=== PATIENT | male | born 1985 | race Caucasian/White ===

== ENCOUNTER 2025-07-02 15:53 | Emergency (ER) | payer SELFPAY ==
[2025-07-02 15:55] VITALS: BMI 28.8
--- NOTE | 2025-07-02 16:24 | EDNOTE_ITS ---
ED Male Genitalurinary RME/HPI General Chief complaint: Urogenital-Male Stated complaint: BURN TO PRIVATE AREA, LARVA TO EYES Time Seen by Provider: 07/02/25 16:17 Source: patient Arrival date/time: 07/02/25 15:53 Mode of arrival: ambulatory Limitations: no limitations RME / HPI RME / HPI Narrative: Patient is a 39-year-old male that is in the emergency department with concerns for redness and burning sensation along his scrotum and penis as well as feeling that there are insects in both of his eyes. Patient states that he bought a lotion for his genital area, that he applied and caused redness and swelling. Denies any fevers chills nausea vomiting difficulties with urination, penile discharge. Denies history of STIs. No difficulty with bowel movements. Patient states that he went fishing a few weeks ago and then napsylate eggs in his eyes. Now he has a foreign body sensation in both of his eyes. Denies blurry vision or difficulty seeing. Patient states this has happened to him before, he was referred to an lead data entry operator but never went Related Data Previous Rx's ?Medication ?Instructions ?Recorded erythromycin 5 mg/gram (0.5 %) eye 0.5 inch ophthalmic (eye) QID 7 07/02/25 ointment days #3.5 grams neomycin-bacitracn Zn-polymyx 3.5 1 applic topical BID 7 days #9.35 07/02/25 mg-400 unit-5,000 unit/gram top grams oint (Triple Antibiotic) Allergies Allergy/AdvReac Type Severity Reaction Status Date / Time No Known Allergies Allergy Verified 07/02/25 15:55 ED Exam General Limitations: Present no limitations Course Quality Measures none Orders Category Date Time Status Fluorescein Sodium [Bio-Polly] Med 07/02/25 16:22 Discontinued 1 mg BOTH EYES X1 ONE Ketorolac Inj [Toradol Inj] Med 07/02/25 16:52 Discontinued 15 mg IM X1 ONE TETRACAINE Op Susan 0.5% [Pontocaine Op Susan 0.5%] Med 07/02/25 16:22 Discontinued 1 drop BOTH EYES X1 ONE Urogenital - Male MDM Narrative MDM Narrative:: Patient is a 39-year-old male to the emerged from with concerns for scrotal and penile pain as well as foreign body sensation in both of his eyes. Vital signs and exam as listed. Concern for foreign bodies in both of the eyes, corneal abrasions, iritis. Also concern for contact dermatitis of the scrotum and penis. Will provide patient with medications for symptom relief here in the emergency department for his scrotal penile symptoms. Advised him to follow-up with his primary care doctor. Will also perform for screening fluorescein assessment of both eyes. Patient has a small corneal abrasion on the left eye at approximately 6 o'clock position, no foreign bodies appreciated. Provided patient with a prescription for erythromycin as well as prescription for contact dermatitis. On reevaluation patient hemodynamically stable no distress will discharge home close return precautions follow-up with primary care doctor Patient data External records reviewed:: None Clinical information provided by:: patient Social determinants that could affect healthcare access:: none Patient has the following chronic illnesses:: None How is presenting disease/condition affected by chronic disease/condition?: no chronic disease Evaluation data The following diagnostics were reviewed and interpreted by me:: other (specify) Lab and/or radiology exams considered but not ordered:: None Interpretation Summary: See MDM Medications / Prescriptions Medications or Prescriptions considered but not ordered:: None Medication administrations:: Medication Administration History Discontinued Medications Fluorescein Sodium (Fluorescein Sod 1 Mg Strp) 1 mg BOTH EYES X1 ONE Stop: 07/02/25 16:23 Last Admin: 07/02/25 16:47 Dose: 1 mg Documented By: Ketorolac Tromethamine (Ketorolac Inj 60 Mg/2 Ml Vial) 15 mg IM X1 ONE Stop: 07/02/25 16:53 Last Admin: 07/02/25 17:06 Dose: 15 mg Documented By: Tetracaine HCl (Tetracaine Pf Op Susan 0.5% 4 Ml Drpette) 1 drop BOTH EYES X1 ONE Stop: 07/02/25 16:23 Last Admin: 07/02/25 16:47 Dose: 1 drop Documented By: See above Consultations Consultation(s) initiated? (list below): No Diagnosis Urogenital Male Differential Diagnosis: other (See MDM) Most likely diagnosis given after review of the tests above:: Contact dermatitis, allergic reaction, foreign body, corneal abrasion Admission Indicated Admission indicated?: not indicated Admission Request Was there a request for admission?: No Disposition Plan Disposition Plan: Discharge Discharge Attestation Discharge Attestation: The patient and all family members were given an opportunity to ask questions and understood the discharge instructions. Discharge instructions specifically effects, indications for sooner follow up or return to the emergency department, and the expected course of current diagnosis. Patient condition: Stable Discharge Plan Plan Patient Disposition: HOME (Self Care) Patient condition on transfer: Stable Prescriptions/Referrals Prescriptions/Med Rec: New erythromycin 5 mg/gram (0.5 %) ointment 0.5 inch ophthalmic (eye) QID 7 Days Qty: 3.5 0RF Triple Antibiotic 3.5mg-400 unit- 5,000 unit/gram ointment 1 applic topical BID 7 Days Qty: 9.35 0RF Problem List Clinical Impression: Contact dermatitis, Abrasion, corneal Patient/Caregiver Discharge Instructions Education Materials: Corneal Injury, ED Contact Dermatitis Additional Instructions: Please follow up with your primary care provider this week. Please wear loose clothes, do not apply any other lotions beyond what is prescribed. Please follow up with an lead data entry operator this week. Return immediately if symptoms worsen or new symptoms of concern Print Language: Cameroonian Stand Alone Forms: Rima Award Info., Patient Portal Info Letter
[2025-07-02] MEDS: TETRACAINE PF OP SOL 0.5% 4 ML DRPETTE 1 DROP BOTH EYES (16:47)
[2025-07-02] MEDS: FLUORESCEIN SOD 1 MG STRP BOTH EYES (16:47)
[2025-07-02] MEDS: KETOROLAC INJ 60 MG/2 ML VIAL 15 MG IM (17:06)
== END 2025-07-02 17:30 | disposition home or self-care (01) ==
LOC: SERX 17:41
PROVIDERS: Emergency Provider Emergency Medicine
DX: L25.9 Unspecified contact dermatitis, unspecified cause (principal); S05.02XA Injury of conjunctiva and corneal abrasion without foreign body, left eye, initial encounter; X58.XXXA Exposure to other specified factors, initial encounter
CPT/HCPCS: 96372; 99282; J1885

== ENCOUNTER 2025-10-28 16:06 | Emergency (ER) | payer MEDICAID, SELFPAY ==
--- NOTE | 2025-10-31 06:37 | PD.EDADDENDU ---
Emergency Room Addendum Addendum Narrative: Pt eloped prior to being seen
== END 2025-10-28 17:17 | disposition left against medical advice (07) ==
LOC: SERX 18:36
PROVIDERS: Emergency Provider Family Medicine
DX: Z53.21 Procedure and treatment not carried out due to patient leaving prior to being seen by health care provider (principal)
CPT/HCPCS: 99281

== ENCOUNTER 2025-11-02 00:47 | Emergency (ER) | payer BC, SELFPAY ==
[2025-11-02 00:48] VITALS: BP 131/86; PULSE 86; RESP 17; TEMP 36.7; O2SAT 98
[2025-11-02 01:31] VITALS: BP 124/86; PULSE 77; RESP 16; TEMP 37; O2SAT 95; BMI 29.0
--- NOTE | 2025-11-02 01:57 | XR_ITS ---
Examination: CT brain head without contrast. 2-D sagittal coronal reconstructions Date and time of exam: November 02, 2025, 0353 hours INDICATIONS: Seizure activity today CTDI: vol (mGy): 54.4 DLP: (mGycm): 1075 Technique: Multiple CT axial sections of the brain have been obtained, 5 mm slice thickness. Contrast has not been administered. 2-D sagittal, coronal reconstructions have been obtained Low dose protocols were performed. One or more of the following dose reduction techniques were used; automated exposure control, adjustment of the mA and/or KV according to patient size, use of iterative reconstruction technique. Findings: No significant ventricular enlargement. Intra-axial or extra-axial hemorrhage density is not seen. No mass effect or midline shift Basal cisterns are not remarkable. Fourth ventricle is midline. Cranial vault intact. Impression: Negative for acute hemorrhage, mass effect or midline shift Consider brain MRI follow-up, pre and post contrast, seizure protocol
--- NOTE | 2025-11-02 02:02 | PD.EDALCOH ---
ED Alcohol RME/HPI General Chief Complaint: General Adult/Misc Complain Stated Complaint: POSSIBLE ALCOHOL WITHDRAWAL Time Seen by Provider: 11/02/25 01:51 Arrival date/time: 11/02/25 00:47 39M with history of alcohol use presents to ED with possible alcohol withdrawal (last drink 2 days ago) with anxiety/panic attacks and possible seizure, though patient was awake for it. Limitations: no limitations Related Data Previous Rx's ?Medication ?Instructions ?Recorded chlordiazepoxide HCl 5 mg capsule 5 mg PO BID PRN alcohol withdrawal 11/02/25 #14 caps Allergies Allergy/AdvReac Type Severity Reaction Status Date / Time No Known Allergies Allergy Verified 10/28/25 16:10 Review of Systems Review of Systems Systems Reviewed: All systems reviewed, normal except as documented Neurologic Neurologic: Reports as per HPI and Reports convulsions Psychiatric Psychiatric: Reports as per HPI, Reports anxiety and Reports panic attacks Past Medical History Social History SMOKING STATUS: Current every day smoker ED Exam General Limitations: Present no limitations General appearance: Present alert, in no apparent distress and anxious Head Head exam: Present atraumatic ENT ENT exam: Present normal exam, normal oropharynx and mucous membranes moist Neck Neck exam: Present normal inspection, full ROM and trachea midline Chest Chest inspection: Present normal inspection and symmetric chest wall rise Neurological Exam Neurological exam: Present alert, oriented X3 and other (tremors) Psychiatric Psychiatric exam: Present normal affect and anxious Skin Skin exam: Present warm, dry, intact and normal color Course Quality Measures none Orders Category Date Time Status CT head/brain wo con Stat Exams 11/02/25 01:57 Taken Alcohol, Blood Medical Stat Lab 11/02/25 02:06 Completed CBC Stat Lab 11/02/25 02:06 Completed CMP [Comprehensive Metabolic Panel] Stat Lab 11/02/25 02:06 Completed Drug Screen,Urine Stat Lab 11/02/25 02:04 Completed Lactate (Lactic Acid) Stat Lab 11/02/25 02:06 Completed Mag [Magnesium] Stat Lab 11/02/25 02:06 Completed Troponin I Stat Lab 11/02/25 02:06 Completed Urinalysis, C/S if Indicated Stat Lab 11/02/25 02:06 Completed Diazepam [Valium] Med 11/02/25 01:51 Discontinued 10 mg PO X1 ONE Thiamine [Vitamin B-1] Med 11/02/25 01:51 Discontinued 100 mg PO X1 ONE Vital Signs Vital signs: Vital Signs Temperature 98.0 F 11/02/25 00:48 Pulse Rate 86 11/02/25 00:48 Respiratory Rate 17 11/02/25 00:48 Blood Pressure 131/86 H 11/02/25 00:48 Pulse Oximetry (%) 98 11/02/25 00:48 Oxygen Delivery Method Room Air 11/02/25 00:48 O2 at 98% on RA and WNLs Discharge Plan Plan Patient Disposition: HOME (Self Care) Discharge Disposition comment: Stable Prescriptions/Referrals Prescriptions/Med Rec: New chlordiazepoxide HCl 5 mg capsule 5 mg PO BID PRN (Reason: alcohol withdrawal) Qty: 14 0RF Referrals: No Primary/Family,Physician [Primary Care Provider] - In 1 week Problem List Clinical Impression: Alcohol withdrawal Patient/Caregiver Discharge Instructions Education Materials: Alcohol Withdrawal: What to Expect Additional Instructions: Please follow-up with PCP within 24-48 hours and return immediately if symptoms worsen. Print Language: Greek Stand Alone Forms: Patient Portal Info Letter PA/PRANAY Supervising Physician PA/PRANAY Supervising Physician: Dr. Rust Alcohol MDM Narrative MDM Narrative: 39M with history of alcohol use presents to ED with possible alcohol withdrawal (last drink 2 days ago) with anxiety/panic attacks and possible seizure, though patient was awake for it. Physical exam reveals tremors. Normal pupil response and EOM. Speech and WOB normal. Patient is afebrile, alert, but anxious. No leukocytosis. CMP unremarkable. Mag normal. Lactate normal. Alcohol/tox screen neg. Trop normal. Upon reassessment, patient sleeping after Valium. CT telerad unremarkable. Meds and halfway house counselor given. Patient data [place] [facility] [place] Clinical information provided by:: patient Social determinants that could affect healthcare access:: alcohol use Patient has the following chronic illnesses:: alcohol use How is presenting disease/condition affected by chronic disease/condition?: exacerbated by Evaluation data The following diagnostics were reviewed and interpreted by me:: lab results and radiology exam(s) Lab and/or radiology exams considered but not ordered:: ordered Interpretation Summary: above Medications / Prescriptions Medications or Prescriptions considered but not ordered:: ordered Medication administrations:: Medication Administration History Discontinued Medications Diazepam (Diazepam 5 Mg Tablet) 10 mg PO X1 ONE Stop: 11/02/25 01:52 Last Admin: 12/24/25 02:22 Dose: 10 mg Documented By: ANICETO Thiamine HCl (Thiamine 100 Mg Tablet) 100 mg PO X1 ONE Stop: 11/02/25 01:52 Last Admin: 11/02/25 02:23 Dose: 100 mg Documented By: ANICETO above Consultations Consultation(s) initiated? (list below): No Diagnosis Differential diagnosis alcohol: alcohol withdrawal delirium, hypomagnesemia, alcohol intoxication, alcohol ketoacidosis, alcohol withdrawal syndrome and alcohol withdrawal seizure Most likely diagnosis given after review of the tests above:: alcohol withdrawal Admission Indicated Admission indicated?: not indicated Admission Request Was there a request for admission?: No Disposition Plan Disposition Plan: Discharge Discharge Attestation Discharge Attestation: The patient and all family members were given an opportunity to ask questions and understood the discharge instructions. Discharge instructions specifically effects, indications for sooner follow up or return to the emergency department, and the expected course of current diagnosis. Patient condition: Stable
[2025-11-02] MEDS: DIAZEPAM 5 MG TABLET 10 MG PO (02:22)
[2025-11-02] MEDS: THIAMINE 100 MG TABLET PO (02:23)
[2025-11-02 02:28] LABS: Collection Type, Urine Clean Catch; Squamous Epithelial Cell,Urine 0 /hpf (0-5)
[2025-11-02 02:34] LABS: Lactate (Lactic Acid) 0.9 mMol/L (0.4-2.0)
[2025-11-02 02:37] LABS: Basophils # (Auto) 0.0 Thou/mm3 (0.0-0.2); Basophils % (Auto) 1 % (0-2.5); Bilirubin,Urine Negative (Negative); Blood,Urine Negative (Negative); Clarity,Urine Clear (Clear/Hazy); Color,Urine Lt-Yellow (Lt Yel-Yel); Culture Indicated,Urine Not Indicated; Eosinophils # (Auto) 0.1 Thou/mm3 (0.0-0.5); Eosinophils % (Auto) 1 % (0-10); Glucose, Urine Negative (Negative); Hematocrit 45.0 % (41.0-53.0); Hemoglobin 15.1 g/dL (13.5-16.0); Immature Granulocytes Auto 0.03 Thou/mm3 (0.00-0.00); Ketones,Urine Negative (Negative); Leukocyte Esterase,Urine Negative (Negative); Lymphocytes # (Auto) 1.5 Thou/mm3 (1.0-4.8); Lymphocytes % (Auto) 20 % (10-50); Mean Corpuscular HGB Conc 33.6 g/dl (31.0-37.0); Mean Corpuscular Hemoglobin 28.8 pg (25.0-35.0); Mean Corpuscular Volume 86 fL (80-100); Monocytes # (Auto) 0.9 Thou/mm3 (0.0-0.8); Monocytes % (Auto) 12 % (0-12); Neutrophils # (Auto) 4.9 Thou/mm3 (1.8-7.7); Neutrophils % (Auto) 67 % (37-80); Nitrite,Urine Negative (Negative); Nucleated Red Blood Cell # 0.00 Thou/mm3 (0.00-0.00); Nucleated Red Blood Cell % 0 /100 WBC (0); PH,Urine 6.5 (5.0-7.0); Platelet Count 254 Thou/mm3 (140-440); Protein,Urine Negative (Neg - Trace); RBC,Urine 1 /hpf (0-3); RDW Standard Deviation 38.1 fL (35.1-43.9); Red Blood Count 5.25 Miln/mm3 (4.50-5.90); Specific Gravity,Urine 1.011 (1.001-1.035); Urobilinogen,Urine Negative mg/dL (0.0-1.0); WBC,Urine < 1 /hpf (0-5); White Blood Count 7.4 Thou/mm3 (3.8-10.6)
[2025-11-02 02:57] LABS: Alanine Aminotransferase 21 U/L (10-49); Albumin, Serum 4.9 gm/dL (3.5-5.0); Albumin/Globulin Ratio 2.0 (1.2-2.2); Alcohol, Blood Medical < 3.0 mg/dL (0-10.0); Alkaline Phosphatase 57 U/L (46-116); Anion Gap 7 (7-16); Aspartate Amino Transferase 26 U/L (0-34); BUN/Creatinine Ratio 7 Ratio (12-20); Bilirubin,Total 0.3 mg/dL (0.3-1.2); Blood Urea Nitrogen 6 mg/dL (9-23); Calcium 9.5 mg/dL (8.3-10.6); Calcium (Corrected) 9.5 mg/dL (8.5-10.1); Carbon Dioxide 26.3 mMol/L (20.0-31.0); Chloride 110 mMol/L (98-107); Creatinine (Component) 0.9 mg/dL (0.6-1.3); Estimated Creatinine Clearance 111.9 mL/min (>60); Globulin 2.5 gm/dL (2.3-3.5); Glucose 98 mg/dL (74-106); Magnesium 2.0 mg/dL (1.6-2.6); Osmolality,Calculated 282 (275-295); Potassium 4.2 mMol/L (3.4-5.1); Sodium 143 mMol/L (136-145); Total Protein 7.4 gm/dL (5.7-8.2); Troponin I < 0.002 ng/mL (0.0-0.045); eGFR > 60 See Note
[2025-11-02 03:00] LABS: Amphetamine/Methamp Scrn,U Negative (Negative); Barbiturate Screen,Urine Negative (Negative); Benzodiazepines Screen,Urine Negative (Negative); Benzoylecgonine Screen, Ur Negative (Negative); Fentanyl Screen,Urine Negative (Negative); Opiate Screen,Urine Negative (Negative); THC Screen,Urine Negative (Negative)
[2025-11-02 04:53] VITALS: BP 138/87; PULSE 74; RESP 16; TEMP 36.3; O2SAT 98
--- NOTE | 2025-11-02 05:07 | PRELIM_ITS ---
CT scan of the head without intravenous contrast (axial sections with sagittal and coronal reformats). November 02, 2025 at 03:53 hours Clinical History: Possible seizure. Comparison: No prior study is available for comparison available at the time of this report. Findings: No evidence of intracranial hemorrhage, mass effect or midline shift. The ventricles and CSF spaces are unremarkable. The calvarium is unremarkable. The mastoid air cells and the visualized paranasal sinuses are clear. Impression: No evidence of intracranial hemorrhage, mass effect or midline shift. Report Electronically Signed By: Tommy Frias 11/02/2025 5:06:53 AM [EST]
[2025-11-02 06:40] VITALS: RESP 18
== END 2025-11-02 06:41 | disposition home or self-care (01) ==
PROVIDERS: Physician Assistant; Emergency Provider Emergency Medicine
DX: F10.239 Alcohol dependence with withdrawal, unspecified (principal); Y90.0 Blood alcohol level of less than 20 mg/100 ml
CPT/HCPCS: 36415; 70450; 80053; 80307; 80320; 81001; 83605; 83735; 84484; 85025; 99283; A9270; G0480